=== PATIENT | male | born 1970 | race African-American/Black ===

== ENCOUNTER 2016-09-12 02:55 | Inpatient (IN) | payer BC, OTHER ==
[~2016-09-12] VITALS: Ht 185.4 cm; Wt 108.5 kg
[2016-09-12] VITALS (35 sets, daily range): BP systolic 83–194; BP diastolic 62–144
--- NOTE | ~2016-09-12 | H ---
[facility] [place] [address] HISTORY AND PHYSICAL Name: ALISA DE ANDA Room #: 452-P [facility] IN M.R.#: [id number] Admission: 09/12/16 Attend Phys: Carlos Julien DO Discharge: 09/15/16 Date of : 74 Report #: [id number] THIS REPORT FOR: //name// CC: Justo Ceja ATTENDING PHYSICIAN: Dr. Ortiz. PRIMARY CARE PHYSICIAN: Cori Ceja M.D. CHIEF COMPLAINT: Respiratory failure. HISTORY OF PRESENT ILLNESS: The patient is a 46-year-old -Citizen Of [place] male, who has a history of asthma. His says he is normally well controlled in the last few months, he has been having some congestion with productive cough and thick yellow to greenish sputum production. He has been evaluated few times in the ER and was never started on any antibiotics and has not been on any recent steroids. He does breathing treatments at home, which have helped somewhat. He has not been having any fevers as far as she knows. Apparently today, he was driving and had some respiratory distress. He actually called his and said he could not breath and pulled over at a gas station. She ended up finding him at the gas station and EMS had already arrived and were resuscitating him. Apparently, someone must have call the EMS and they had found him unresponsive and apneic. Apparently, his oxygen saturation was 7% and his heart rate upon their arrival was 30-40. The patient did have increased in oxygen and his heart rate after bagging. He has never lost a pulse and did not require any CPR. His says he has never been intubated for asthma complications in the past. In the ER, he was intubated and he remains sedated on the vent. He has already been seen by Cardiology. PAST MEDICAL HISTORY: Asthma. PAST SURGICAL HISTORY: None. HOME MEDICATIONS: Albuterol and Ellipta inhaler. ALLERGIES: None. SOCIAL HISTORY: The patient does smoke cigarettes. His has no idea, how many he smokes or how often he buys pack of cigarettes. She did find it in his belonging tonight in the ER. As far as she knows he has never been a heavy smoker and he has never smoked around her. He does drink alcohol socially and did have a few drinks tonight at a friend's libertarian. He works for [employer] He lives at home with his and his in-laws. [facility] [address] [place] [address] HISTORY AND PHYSICAL Name: ALISA DE ANDA Room #: 452-P [facility] IN .R.#: [id number] Admission: 09/12/16 Attend Phys: Carlos Julien DO Discharge: 09/15/16 Date of : 74 Report #: [id number] FAMILY HISTORY: Both his parents in their 20s, the thinks from homicide. REVIEW OF SYSTEMS: Unobtainable due to altered mental status and sedation. PHYSICAL EXAMINATION: GENERAL: The patient is an sedated male in no acute distress. VITAL SIGNS: Temperature is 35.7, heart rate 102, respirations 22, blood pressure 194/144 and oxygen is 95% on vent. HEENT: PERRLA. Sclerae with ET tube in place. NECK: Supple, no JVD noted. CARDIOVASCULAR: Normal S1, S2. No murmurs, rubs or gallops. RESPIRATORY: Breath sounds are with expiratory wheezing bilaterally. He is breathing comfortably with vent at this time. ABDOMEN: Soft and nondistended. VASCULAR: No edema noted. Pedal pulses are 2+. NEUROLOGIC: The patient is sedated. He is on vent. He is unable to follow any commands and he is breathing above the vent. LABORATORY DATA AND DIAGNOSTICS: WBC 14.3, hemoglobin 14.5, platelets are 250, alcohol level is 22, sodium 144, potassium 2.9, BUN 15, creatinine 1.2. Troponin is negative. Glucose is 219 and initial ABG showed a pH of 6.94, pCO2 of 89, pO2 of 462 and bicarbonate of 18.9, lactate now was 5.1. Urine drug screen was negative. Chest x-ray showed no acute process and ET tube was in good position. ASSESSMENT AND PLAN: 1. Eeotw-mp-cazivip respiratory failure due to asthma exacerbation. The patient has already been seen by Pulmonary and started on IV steroids and scheduled breathing treatments and antibiotics to cover for possible pneumonia and continue to wean vent per Pulmonary. 2. Hypokalemia. This is being replaced. Follow labs. 3. Hyperglycemia There is no history of diabetes. We will check hemoglobin A1c and add sliding scale insulin while he is on steroids. 4. Deep venous thrombosis prophylaxis, place sequential compression devices. We will continue to follow the patient closely throughout the hospitalization and make changes based on clinical status. <ELECTRONICALLY SIGNED> By: MARJORIE Gutierrez 09/16/16 0729 [id number] [id number] MARJORIE Gutierrez /nt
--- NOTE | ~2016-09-12 | HC ---
[facility] [address] CONSULTATION Name: ALISA DE ANDA Room #: 239-P ADM IN M.R.#: [id number] Admission: 09/12/16 Attend Phys: Syd Ortiz MD Discharge: Date of : 74 Report #: [id number] THIS REPORT FOR: //name// CC: Justo Ceja DATE OF SERVICE: 09/12/2016 REASON FOR CONSULTATION: Exacerbation of asthma. Forty minutes critical care time spent up to this point. IMPRESSION: 1. Exacerbation of asthma. 2. Hypokalemia. 3. Leukocytosis. 4. History of reflux. 5. Recent upper respiratory infection. PLAN: Antibiotics, corticosteroids, aerosol therapy, replace potassium, DVT and ulcer prophylaxis and weaning protocol. HISTORY OF PRESENT ILLNESS: A 46-year-old seen in the ER room 11, family present, has been having chest congestion this week. Discussed with spouse, he called her and told her to get the breathing treatments ready and EMS was called. Narcan was given. The patient required intubation and bagging, also received magnesium, ketamine and corticosteroids. No CPR was performed, but the patient was bagged. MEDICATIONS: Have included per chart, Anoro, Breo, AccuNeb, ____. ALLERGIES: No known. SOCIAL HISTORY: Positive tobacco. Occasional ETOH. 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 FAMILY HISTORY: Negative for asthma. REVIEW OF SYSTEMS: Possible GERD, asthma. No drugs of abuse, recent upper respiratory infection, no edema, no hypertension. No hot or cold intolerance. PHYSICAL EXAMINATION: VITAL SIGNS: Currently on ventilator, temperature 96.3, pulse 120, respirations 28, BP 121/68, earlier 194/144. LUNGS: Wheeze bilaterally. [facility] [address] [place] [address] CONSULTATION Name: ALISA DE ANDA Room #: 239-P [facility] IN M.R.#: [id number] Admission: 09/12/16 Attend Phys: Syd Ortiz MD Discharge: Date of : 74 Report #: [id number] HEART: Regular. ABDOMEN: Bowel sounds present. EXTREMITIES: Moving all extremities. LABORATORY DATA: Potassium is 2.9. BUN 15, creatinine 1.2, ____ 22, troponin less than 0.04. Drug screen negative. Initial pH 6.943, pCO2 89, pO2 462, lactate 5.1, 100%, rate of 20, tidal volume 500, PEEP of 5. White count 14.3, hemoglobin 14.5, platelets 250. Repeat ABG 7.235, pCO2 of 57, pO2 230 on ____, 28, 500 and 5. We will follow closely with you. By: [id number] [id number] Justo Del Angel MD /nt
[~2016-09-12 02:55] MED LIST: ACCUNEB SO1.25 MG/1 INH; ALBUTEROL2.5 MG/0.5 INH; ANORO ELLIPTA1 EACH IH; BREO ELLIPTA 21 EACH IH; PREDNISONE 20 M20 MG PO; VENTOLIN HFA 1818 GM INH
[2016-09-12 03:20] LABS: HEMATOCRIT 45.3 % (42.0-52.0); HEMOGLOBIN 14.5 gm/dL (14.0-18.0); MCH 28.8 pg (26.0-34.0); MCV 90.1 fL (80.0-100.0); PLATELET COUNT 250 thou/uL (150-400); RBC 5.02 mil/uL (4.50-6.00); RDW 14.4 % (10.5-14.5); WBC 14.3 thou/uL (4.0-11.0)
[2016-09-12 03:25] LABS: MANUAL DIFF YES
[2016-09-12 03:35] LABS: CREATININE 1.2 mg/dL (0.7-1.3)
[2016-09-12 03:36] LABS: POTASSIUM 2.9 mmol/L (3.5-5.1)
[2016-09-12 03:44] LABS: AMP/METHAMP Negative (Negative); BARBITURATES Negative (Negative); BENZODIAZEPINES Negative (Negative); COCAINE Negative (Negative); METHADONE Negative (Negative); OPIATES Negative (Negative); PCP Negative (Negative); THC Negative (Negative)
[2016-09-12 04:02] LABS: ABG COMMENT A/C MODE; ABG SAMPLE TYPE ARTERIAL; BE(vivo) -15.1 mmol/L (-2 to +3); HCO3 18.9 mmol/L (22.0-26.0); O2(CT) 20.7 mL/dL (15.0-23.0); O2Hb 94.9 % (92.0-98.0); PCO2 89.2 mmHg (35.0-45.0); PO2 462.2 mmHg (80.0-100.0); STICK SITE L.RADIAL; TIDAL VOLUME 500 ml; pH 6.943 (7.360-7.450); sO2 99.7 % (92.0-98.0); tCO2 21.6 mmol/L (24.0-30.0)
[2016-09-12 04:04] LABS: ABSOLUTE NEUTROPHILS 3.9 thou/uL (1.4-8.2); ANISOCYTOSIS SLIGHT; ATYPICAL LYMPHS 4 %; TOTAL CELL COUNT 100
[2016-09-12 05:24] LABS: ABG SAMPLE TYPE ARTERIAL; BE(vivo) -4.6 mmol/L (-2 to +3); HCO3 23.6 mmol/L (22.0-26.0); LACTATE 2.39 mmol/L (0.5-2.0); O2(CT) 18.9 mL/dL (15.0-23.0); PO2 230.1 mmHg (80.0-100.0); STICK SITE L.RADIAL; sO2 99.3 % (92.0-98.0); tCO2 25.4 mmol/L (24.0-30.0)
[2016-09-12 05:26] LABS: ABG COMMENT A/C MODE; TIDAL VOLUME 500 ml; pH 7.235 (7.360-7.450)
[2016-09-12 09:25] LABS: ABG SAMPLE TYPE ARTERIAL; BE(vivo) -2.8 mmol/L (-2 to +3); HCO3 23.2 mmol/L (22.0-26.0); LACTATE 3.08 mmol/L (0.5-2.0); O2(CT) 18.9 mL/dL (15.0-23.0); O2Hb 96.2 % (92.0-98.0); PCO2 45.2 mmHg (35.0-45.0); PO2 127.1 mmHg (80.0-100.0); sO2 98.3 % (92.0-98.0); tCO2 24.6 mmol/L (24.0-30.0)
[2016-09-12 09:26] LABS: STICK SITE L.RADIAL; pH 7.329 (7.360-7.450)
[2016-09-12 09:27] LABS: TIDAL VOLUME 500 ml; VDS CMV MODE cc
[2016-09-12 12:45] LABS: MAGNESIUM 2.1 mg/dL (1.8-2.4)
[2016-09-13] VITALS (21 sets, daily range): BP systolic 119–182; BP diastolic 66–113
[2016-09-13 04:40] LABS: HEMATOCRIT 40.4 % (42.0-52.0); HEMOGLOBIN 12.9 gm/dL (14.0-18.0); MCH 27.9 pg (26.0-34.0); MCV 87.2 fL (80.0-100.0); PLATELET COUNT 228 thou/uL (150-400); RBC 4.63 mil/uL (4.50-6.00); RDW 14.3 % (10.5-14.5); WBC 17.8 thou/uL (4.0-11.0)
[2016-09-13 04:52] LABS: MANUAL DIFF YES
[2016-09-13 05:13] LABS: ABG SAMPLE TYPE ARTERIAL; BE(vivo) -4.5 mmol/L (-2 to +3); HCO3 21.6 mmol/L (22.0-26.0); LACTATE 5.79 mmol/L (0.5-2.0); O2(CT) 19.3 mL/dL (15.0-23.0); PCO2 43.2 mmHg (35.0-45.0); PO2 82.9 mmHg (80.0-100.0); pH 7.316 (7.360-7.450); sO2 95.3 % (92.0-98.0); tCO2 22.9 mmol/L (24.0-30.0)
[2016-09-13 05:14] LABS: FIO2 30 %; TIDAL VOLUME 500 ml
[2016-09-13 05:59] LABS: ALBUMIN 3.4 g/dL (3.4-5.0); CALCIUM 8.5 mg/dL (8.5-10.1); CREATININE 1.1 mg/dL (0.7-1.3); POTASSIUM 4.3 mmol/L (3.5-5.1); TOTAL BILIRUBIN 0.2 mg/dL (<0.1-1.0)
[2016-09-13 08:26] LABS: ANISOCYTOSIS SLIGHT; TOTAL CELL COUNT 100
[2016-09-13 08:50] LABS: ABG SAMPLE TYPE ARTERIAL; HCO3 20.2 mmol/L (22.0-26.0); LACTATE 6.11 mmol/L (0.5-2.0); O2Hb 97.7 % (92.0-98.0); PCO2 31.3 mmHg (35.0-45.0); PO2 134.5 mmHg (80.0-100.0); Pressure Support 7 cm H20; STICK SITE L.RADIAL; pH 7.428 (7.360-7.450); sO2 98.8 % (92.0-98.0); tCO2 21.2 mmol/L (24.0-30.0)
[2016-09-14] VITALS (7 sets, daily range): BP systolic 142–170; BP diastolic 86–118
[2016-09-14 04:11] LABS: GLYCOHEMOGLOBIN (HGB A1C) 5.3 % (4.8-5.6)
[2016-09-15 04:04] VITALS: BP 155/103
[2016-09-15 08:04] VITALS: BP 157/102
[2016-09-15] MEDS ORDERED: CARVEDILOL3.125 MG PO (08:59)
[2016-09-15] MEDS ORDERED: AZITHROMYCIN 2250 MG PO (08:59)
[2016-09-15] MEDS ORDERED: ACCUNEB SO1.25 MG/1 INH (08:59)
[2016-09-15] MEDS ORDERED: ALTACE10 MG PO (09:00)
[2016-09-15] MEDS ORDERED: NORVASC10 MG PO (09:00)
[2016-09-15] MEDS ORDERED: MEDROL DOSPAK21 TA1 PO (09:00)
[2016-09-15 10:01] VITALS: BP 157/102
== END 2016-09-15 12:14 | disposition home or self-care (01) | DRG 208 ==
LOC: ER 02:55 → EROBS 04:59 → ICU 04:59 → 4W 04:59 → ICU 05:44 → 4W 09-13 18:28
PROVIDERS: Emergency Medicine; Family Medicine; Internal Medicine Geriatric Medicine; Internal Medicine Pulmonary Disease; Nurse Practitioner Acute Care
PROC: 5A1945Z Respiratory Ventilation, 24-96 Consecutive Hours (ICD-10-PCS; principal; 2016-09-12)
PROC: 0BH17EZ Insertion of Endotracheal Airway into Trachea, Via Natural or Artificial Opening (ICD-10-PCS; principal; 2016-09-12)
DX: J96.21 Acute and chronic respiratory failure with hypoxia (principal); J45.901 Unspecified asthma with (acute) exacerbation; J45.902 Unspecified asthma with status asthmaticus; J96.22 Acute and chronic respiratory failure with hypercapnia; I10 Essential (primary) hypertension; E87.6 Hypokalemia; F17.210 Nicotine dependence, cigarettes, uncomplicated; R73.9 Hyperglycemia, unspecified; D72.829 Elevated white blood cell count, unspecified; K21.9 Gastro-esophageal reflux disease without esophagitis; Z79.899 Other long term (current) drug therapy
CPT/HCPCS: 10047; 10078

== ENCOUNTER 2017-07-05 03:51 | Emergency (ER) | payer BC, OTHER ==
[~2017-07-05] VITALS: Ht 185.4 cm; Wt 113.4 kg
--- NOTE | ~2017-07-05 | EKG ---
[address] [place] [address] ELECTROCARDIOGRAM REPORT Name: ALISA DE ANDA Room #: DEP MATT Ramirez#: [id number] Admission: 07/05/17 Attend Phys: Discharge: 07/05/17 Date of : 74 Report #: [id number] THIS REPORT FOR: //name// [facility] ED Test Date: 2017-07-05 Test Time: 03:52:22 Pat Name: ALISA DE ANDA Department: Room: Gender: Piece Hand: FERCHO : 1970 Requested By: Lois Stoner Order Number: [id number] MD: Osman Vasquez Measurements Intervals [place] Rate: 108 P: 94 WA: 180 QRS: 73 QRSD: 84 T: 14 QT: 346 QTc: 464 Interpretive Statements Sinus tachycardia Otherwise no significant abnormality No previous ECG available for comparison Electronically Signed On 07-05-2017 9:54:02 CDT by Osman Vasquez [email or web address] <ELECTRONICALLY SIGNED> By: Osman Vasquez MD, [facility] 07/05/17 [id number] 0352 Osman Vasquez MD, FACC /EPI
[~2017-07-05 03:51] MED LIST changes: +ALTACE10 MG PO; +AZITHROMYCIN 2250 MG PO; +CARVEDILOL3.125 MG PO; +MEDROL DOSPAK21 TA1 PO; +NORVASC10 MG PO
[2017-07-05 04:06] LABS: HEMOGLOBIN 13.6 gm/dL (14.0-18.0); MCH 28.1 pg (26.0-34.0); MCHC 33.2 g/dL (28.0-37.0); MCV 84.9 fL (80.0-100.0); PLATELET COUNT 367 thou/uL (150-400); RBC 4.84 mil/uL (4.50-6.00); RDW 13.3 % (10.5-14.5); WBC 7.1 thou/uL (4.0-11.0)
[2017-07-05 04:11] LABS: CALCIUM 8.2 mg/dL (8.5-10.1); CREATININE 1.2 mg/dL (0.7-1.3); POTASSIUM 3.9 mmol/L (3.5-5.1)
[2017-07-05 04:30] LABS: BE(vivo) -0.5 mmol/L (-2 to +3); HCO3 24.8 mmol/L (22.0-26.0); PCO2 43.3 mmHg (35.0-45.0); PO2 58.1 mmHg (80.0-100.0); pH 7.376 (7.360-7.450); sO2 89.6 % (92.0-98.0)
[2017-07-05 05:24] LABS: ABSOLUTE NEUTROPHILS 1.5 thou/uL (1.4-8.2); ATYPICAL LYMPHS 10 %
[2017-07-05] MEDS ORDERED: VENTOLIN HFA 1818 GM INH ×2 (05:41→05:43)
[2017-07-05] MEDS ORDERED: ALBUTEROL2.5 MG/31 INH ×2 (05:41→05:43)
[2017-07-05] MEDS ORDERED: PREDNISONE50 MG PO ×2 (05:41→05:43)
== END 2017-07-05 06:09 | disposition home or self-care (01) ==
LOC: ER 03:51
PROVIDERS: Emergency Medicine
DX: J45.901 Unspecified asthma with (acute) exacerbation (principal); K21.9 Gastro-esophageal reflux disease without esophagitis

== ENCOUNTER 2020-02-01 12:55 | Inpatient (IN) | payer BC, OTHER ==
[~2020-02-01] VITALS: Ht 185.4 cm; Wt 99.8 kg
[2020-02-01] VITALS (15 sets, daily range): BP systolic 142–175; BP diastolic 70–118
--- NOTE | ~2020-02-01 | EMS ---
[address] [address] EMS Patient Care Report Name: ALISA DE ANDA Room #: REG MATT Ramirez#: [id number] Admission: 02/01/20 Attend Phys: Discharge: Date of : 74 Report #: [id number] THIS REPORT FOR: //name// Report Transmitted: 02/01/2020 12:40 EMS Care Summary [place], [place]/[facility] Incident [id number] @ 02/01/2020 12:27 Incident Location [address] [place] [address] Patient ALISA DE ANDA Male, 49 Years 1970 Patient Address Patient History Asthma, Patient Allergies No known allergies, Patient Medications Albuterol, Chief Complaint ASTHMA ATTACK Disposition Transported [place] Dispatch Reason Breathing Problem Transported To [facility] Narrative RESPONDED TO BREATHING PROBLEMS AT [employer]. PT FOUND SITTING IN CAR ALERT AND ORIENTED BUT VERY SWEATY AND ONLY ABLE TO SPEAK ONE WORD AT A TIME. PT HAD INHALER THAT APPEARED TO BE EMPTY. BREATHING TREATMENT SET UP AND ADMINSTERED AND PT PUT ON COT. VITALS, 3 LEAD AND IV OBTAINED. PT GIVEN 125 MG SOLUMEDROL. PT LUNG SOUNDS VERY DIMINISHED AND WHEEZY. PT TRANSPORTED EMERGENCY TO [facility]. PT OVERALL CONDITION DID NOT IMPROVE ALTHOUGH HE REPORTS SOME [address] [address] EMS Patient Care Report Name: ALISA DE ANDA Room #: REG MATT Ramirez#: [id number] Admission: 02/01/20 Attend Phys: Discharge: Date of : 74 Report #: [id number] RELIEF BY BREATHING TREATMENT. PT TEAM LIFTED TO BED AND HANDRAILS UP. REPORT GIVEN TO NURSE. Initial Vitals @12:44P: 99,SpO2: 83, @12:43P: 101,R: 30,BP: 188/124,CO: 0,SpO2: 97, @12:37P: 146,SpO2: 83, @12:44P: 100,SpO2: 83, @12:39P: 114,R: 30,BP: 245/146,Pain: 0/10,GCS: 15,CO: 0,SpO2: 88,Revised Trauma: 11, Assessments @12:33MENTAL:Time Oriented,Person Oriented,Event Oriented,Place Oriented,SKIN:Diaphoresis,HEENT:Head/Face: No Abnormalities,Neck/Airway: No Abnormalities,LUNG SOUNDS:General: No Abnormalities,ABDOMEN:General: No Abnormalities,PELVIS//GI:No Abnormalities,EXTREMITIES:Left Arm: Weakness,Left Leg: Weakness,Right Arm: Weakness,Right Leg: Weakness,PULSE:NEURO:No Abnormalities,@12:40MENTAL:Time Oriented,Person Oriented,Place Oriented,Event Oriented,SKIN:Diaphoresis,HEENT:Head/Face: No Abnormalities,Eyes: No Abnormalities,Neck/Airway: No Abnormalities,LUNG SOUNDS:General: No Abnormalities,Left Upper: No Abnormalities,Right Upper: No Abnormalities,Left Lower: No Abnormalities,Right Lower: No Abnormalities,ABDOMEN:General: No Abnormalities,Left Upper: No Abnormalities,Right Upper: No Abnormalities,Left Lower: No Abnormalities,Right Lower: No Abnormalities,PELVIS//GI:No Abnormalities,EXTREMITIES:Left Arm: Weakness,Right Arm: Weakness,Left Leg: Weakness,Right Leg: Weakness,PULSE:NEURO:No Abnormalities, Impression Asthma Procedures @12:33ALS AssessmentResponse: UnchangedSucceeded@12:38Solu-Medrol - 125 Milligrams (mg) - Intravenous (IV)Response: Improved@12:34Atrovent - 0.5 Milligrams (mg) - NebulizedResponse: Unchanged@12:34Albuterol - 2.5 Milligrams (mg) - NebulizedResponse: Unchanged@12:40Albuterol - 2.5 Milligrams (mg) - NebulizedResponse: Unchanged@12:37Saline Lock 3cc (18 ga) Site: Antecubital-LeftResponse: UnchangedSucceeded@12:353-Lead ECGResponse: UnchangedSucceeded Timeline 12:26,Call Received 12:26,Dispatch Notified 12:27,Dispatched 12:28,En Route 12:32,On Scene 12:33,At Patient [facility] [address] [place] [address] EMS Patient Care Report Name: ALISA DE ANDA Room #: REG MATT Ramirez#: [id number] Admission: 02/01/20 Attend Phys: Discharge: Date of : 74 Report #: [id number] 12:33,ALS Assessment,Response: UnchangedSucceeded, 12:34,Albuterol - 2.5 Milligrams (mg) - Nebulized,Response: Unchanged 12:34,Atrovent - 0.5 Milligrams (mg) - Nebulized,Response: Unchanged 12:35,3-Lead ECG,Response: UnchangedSucceeded, 12:37,BP: / M,PULSE: 146,RR: R,SPO2: 83 Ox,ETCO2: ,BG: ,PAIN: ,GCS: , 12:37,Saline Lock 3cc 18 ga Site: Antecubital-Left,Response: UnchangedSucceeded, 12:38,Solu-Medrol - 125 Milligrams (mg) - Intravenous (IV),Response: Improved 12:39,BP: 245/146 M,PULSE: 114,RR: 30 R,SPO2: 88 Ox,ETCO2: ,BG: ,PAIN: 0,GCS: 15, 12:40,Albuterol - 2.5 Milligrams (mg) - Nebulized,Response: Unchanged 12:40,Depart Scene 12:43,BP: 188/124 M,PULSE: 101,RR: 30 R,SPO2: 97 Ox,ETCO2: ,BG: ,PAIN: ,GCS: , 12:44,BP: / M,PULSE: 99,RR: R,SPO2: 83 Ox,ETCO2: ,BG: ,PAIN: ,GCS: , 12:44,BP: / M,PULSE: 100,RR: R,SPO2: 83 Ox,ETCO2: ,BG: ,PAIN: ,GCS: , 12:45,At Destination 13:02,Call Closed Disclaimer v1.1 Copyright 2020 [employer] This EMS Care Summary contains data elements from the applicable legal record (which may be displayed differently). It is designed to provide pertinent information for the following purposes: continuity of care, clinical quality, and state data reporting. The complete legal record is available to ED staff and administrators of the receiving hospital in [email or web address]'s Patient Tracker. All data is provided "as is."
--- NOTE | ~2020-02-01 | EMS ---
[address] [address] EMS Patient Care Report Name: ALISA DE ANDA Room #: REG MATT Ramirez#: [id number] Admission: 02/01/20 Attend Phys: Discharge: Date of : 74 Report #: [id number] THIS REPORT FOR: //name// Report Transmitted: 02/01/2020 12:41 EMS Care Summary [place], [place]/[facility] Incident [id number] @ 02/01/2020 12:27 Incident Location [address] [place] [address] Patient ALISA DE ANDA Male, 49 Years 1970 Patient Address Patient History Asthma, Patient Allergies No known allergies, Patient Medications Albuterol, Chief Complaint ASTHMA ATTACK Disposition Transported Lights/[place] Dispatch Reason Breathing Problem Transported To [facility] Narrative RESPONDED TO BREATHING PROBLEMS AT [employer]. PT FOUND SITTING IN CAR ALERT AND ORIENTED BUT VERY SWEATY AND ONLY ABLE TO SPEAK ONE WORD AT A TIME. PT HAD INHALER THAT APPEARED TO BE EMPTY. BREATHING TREATMENT SET UP AND ADMINSTERED AND PT PUT ON COT. VITALS, 3 LEAD AND IV OBTAINED. PT GIVEN 125 MG SOLUMEDROL. PT LUNG SOUNDS VERY DIMINISHED AND WHEEZY. PT TRANSPORTED EMERGENCY TO [facility]. PT OVERALL CONDITION DID NOT IMPROVE ALTHOUGH HE REPORTS SOME [address] [address] EMS Patient Care Report Name: ALISA DE ANDA Room #: REG MATT Ramirez#: [id number] Admission: 02/01/20 Attend Phys: Discharge: Date of : 74 Report #: [id number] RELIEF BY BREATHING TREATMENT. PT TEAM LIFTED TO BED AND HANDRAILS UP. REPORT GIVEN TO NURSE. Initial Vitals @12:44P: 99,SpO2: 83, @12:43P: 101,R: 30,BP: 188/124,CO: 0,SpO2: 97, @12:37P: 146,SpO2: 83, @12:44P: 100,SpO2: 83, @12:39P: 114,R: 30,BP: 245/146,Pain: 0/10,GCS: 15,CO: 0,SpO2: 88,Revised Trauma: 11, Assessments @12:33MENTAL:Time Oriented,Person Oriented,Event Oriented,Place Oriented,SKIN:Diaphoresis,HEENT:Head/Face: No Abnormalities,Neck/Airway: No Abnormalities,LUNG SOUNDS:General: No Abnormalities,ABDOMEN:General: No Abnormalities,PELVIS//GI:No Abnormalities,EXTREMITIES:Left Arm: Weakness,Left Leg: Weakness,Right Arm: Weakness,Right Leg: Weakness,PULSE:NEURO:No Abnormalities,@12:40MENTAL:Time Oriented,Person Oriented,Place Oriented,Event Oriented,SKIN:Diaphoresis,HEENT:Head/Face: No Abnormalities,Eyes: No Abnormalities,Neck/Airway: No Abnormalities,LUNG SOUNDS:General: No Abnormalities,Left Upper: No Abnormalities,Right Upper: No Abnormalities,Left Lower: No Abnormalities,Right Lower: No Abnormalities,ABDOMEN:General: No Abnormalities,Left Upper: No Abnormalities,Right Upper: No Abnormalities,Left Lower: No Abnormalities,Right Lower: No Abnormalities,PELVIS//GI:No Abnormalities,EXTREMITIES:Left Arm: Weakness,Right Arm: Weakness,Left Leg: Weakness,Right Leg: Weakness,PULSE:NEURO:No Abnormalities, Impression Asthma Procedures @12:33ALS AssessmentResponse: UnchangedSucceeded@12:38Solu-Medrol - 125 Milligrams (mg) - Intravenous (IV)Response: Improved@12:34Atrovent - 0.5 Milligrams (mg) - NebulizedResponse: Unchanged@12:34Albuterol - 2.5 Milligrams (mg) - NebulizedResponse: Unchanged@12:40Albuterol - 2.5 Milligrams (mg) - NebulizedResponse: Unchanged@12:37Saline Lock 3cc (18 ga) Site: Antecubital-LeftResponse: UnchangedSucceeded@12:353-Lead ECGResponse: UnchangedSucceeded Timeline 12:26,Call Received 12:26,Dispatch Notified 12:27,Dispatched 12:28,En Route 12:32,On Scene 12:33,At Patient [facility] [address] [place] [address] EMS Patient Care Report Name: ALISA DE ANDA Room #: REG MATT Ramirez#: [id number] Admission: 02/01/20 Attend Phys: Discharge: Date of : 74 Report #: [id number] 12:33,ALS Assessment,Response: UnchangedSucceeded, 12:34,Albuterol - 2.5 Milligrams (mg) - Nebulized,Response: Unchanged 12:34,Atrovent - 0.5 Milligrams (mg) - Nebulized,Response: Unchanged 12:35,3-Lead ECG,Response: UnchangedSucceeded, 12:37,BP: / M,PULSE: 146,RR: R,SPO2: 83 Ox,ETCO2: ,BG: ,PAIN: ,GCS: , 12:37,Saline Lock 3cc 18 ga Site: Antecubital-Left,Response: UnchangedSucceeded, 12:38,Solu-Medrol - 125 Milligrams (mg) - Intravenous (IV),Response: Improved 12:39,BP: 245/146 M,PULSE: 114,RR: 30 R,SPO2: 88 Ox,ETCO2: ,BG: ,PAIN: 0,GCS: 15, 12:40,Albuterol - 2.5 Milligrams (mg) - Nebulized,Response: Unchanged 12:40,Depart Scene 12:43,BP: 188/124 M,PULSE: 101,RR: 30 R,SPO2: 97 Ox,ETCO2: ,BG: ,PAIN: ,GCS: , 12:44,BP: / M,PULSE: 99,RR: R,SPO2: 83 Ox,ETCO2: ,BG: ,PAIN: ,GCS: , 12:44,BP: / M,PULSE: 100,RR: R,SPO2: 83 Ox,ETCO2: ,BG: ,PAIN: ,GCS: , 12:45,At Destination 13:02,Call Closed Disclaimer v1.1 Copyright 2020 [employer] This EMS Care Summary contains data elements from the applicable legal record (which may be displayed differently). It is designed to provide pertinent information for the following purposes: continuity of care, clinical quality, and state data reporting. The complete legal record is available to ED staff and administrators of the receiving hospital in [employer]'s Patient Tracker. All data is provided "as is."
[~2020-02-01 12:55] MED LIST changes: +ALBUTEROL2.5 MG/31 INH; +PREDNISONE50 MG PO
[2020-02-01 13:16] LABS: ABSOLUTE NEUTROPHILS 3.8 thou/uL (1.4-8.2); BASOPHILS 0.6 % (0.0-2.0); EOSINOPHILS 6.3 % (0.0-3.0); HEMATOCRIT 47.8 % (42.0-52.0); HEMOGLOBIN 15.6 gm/dL (14.0-18.0); LYMPHOCYTES 35.9 % (24.0-44.0); MCH 28.6 pg (26.0-34.0); MCHC 32.7 g/dL (28.0-37.0); MCV 87.5 fL (80.0-100.0); MONOCYTES 11.7 % (1.0-8.0); PLATELET COUNT 290 thou/uL (150-400); POLYS 45.5 % (36.0-66.0); RBC 5.46 mil/uL (4.50-6.00); RDW 13.7 % (10.5-14.5); WBC 8.4 thou/uL (4.0-11.0)
[2020-02-01 13:25] LABS: ANION GAP 8 mmol/L (7-16); BUN 19 mg/dL (7-18); CALCIUM 9.2 mg/dL (8.5-10.1); CHLORIDE 104 mmol/L (98-107); CO2 32 mmol/L (21-32); CREATININE 1.3 mg/dL (0.7-1.3); GLUCOSE 122 mg/dL (74-106); POTASSIUM 4.5 mmol/L (3.5-5.1); SODIUM 144 mmol/L (136-145)
[2020-02-01 13:33] LABS: BE(vivo) 0 mmol/L (-2 to +3); HCO3 29.4 mmol/L (22.0-26.0); PO2 108.7 mmHg (80.0-100.0); sO2 97.1 % (92.0-98.0)
[2020-02-01 13:34] LABS: PCO2 68.2 mmHg (35.0-45.0); pH 7.253 (7.360-7.450)
[2020-02-01 13:35] LABS: ALBUMIN 3.8 g/dL (3.4-5.0); DIRECT BILIRUBIN < 0.1 mg/dL (<0.1-0.2); SGOT 51 U/L (15-37); SGPT 49 U/L (30-65); TOTAL BILIRUBIN 0.3 mg/dL (0.2-1.0); TOTAL PROTEIN 8.5 g/dL (6.4-8.2); TROPONIN-I <0.06 ng/mL (<0.06)
--- NOTE | 2020-02-01 14:23 | EKG ---
[facility] [place] [address] [place] [address] ELECTROCARDIOGRAM REPORT Name: ALISA DE ANDA Room #: 170-11 ADM IN M.R.#: [id number] Admission: 02/01/20 Attend Phys: Cuate Day MD Discharge: Date of : 74 Report #: [id number] THIS REPORT FOR: cc: Cori Ceja MD, Nora P. MD Santiago, Patrick MD [facility] ~ THIS REPORT FOR: //name// [facility] ED Test Date: 2020-02-01 Test Time: 13:42:01 Pat Name: ALISA DE ANDA Department: Room: 170 Gender: M Gift Consultant: rolly : 1970 Requested By: Lois Stoner Order Number: [id number] MD: Mark Nelson Measurements Intervals [place] Rate: 94 P: 91 [place]: 182 QRS: 83 QRSD: 77 T: 68 QT: 350 QTc: 438 Interpretive Statements Sinus rhythm Biatrial enlargement Compared to ECG 07/05/2017 03:52:22 Sinus tachycardia no longer present Electronically Signed On 02-01-2020 14:23:30 CDT by Mark Nelson [email or web address] <ELECTRONICALLY SIGNED> By: Mark Nelson MD, FACC 02/01/20 1423 1342 1342 Mark Nelson MD, FAC /EPI
[2020-02-02] VITALS (13 sets, daily range): BP systolic 143–181; BP diastolic 62–118
[2020-02-02 04:47] LABS: CALCIUM 8.9 mg/dL (8.5-10.1); CREATININE 1.1 mg/dL (0.7-1.3); POTASSIUM 4.1 mmol/L (3.5-5.1)
[2020-02-02 05:07] LABS: HEMOGLOBIN 14.6 gm/dL (14.0-18.0); MCHC 32.3 g/dL (28.0-37.0); MCV 86.5 fL (80.0-100.0); RBC 5.21 mil/uL (4.50-6.00); RDW 13.7 % (10.5-14.5); WBC 11.3 thou/uL (4.0-11.0)
[2020-02-02] MEDS ORDERED: ACCUNEB SO1.25 MG/1 INH (10:38)
[2020-02-02] MEDS ORDERED: SYMBICORT160 MCG/4. INH (10:38)
[2020-02-02] MEDS ORDERED: PREDNISONE 20 M20 M1 PO (10:38)
--- NOTE | 2020-02-02 11:55 | NUR ---
Patient stable throughout the morning. Heart rate and rhythm stable. Blood pressure slightly elevated. Dr. Day ordering home meds. Ate well. Adequate oxygenation on room air. Up and down to commode without difficulty. Q4h RT tx. Patient did ask for an additional treatment before he transfered up to the 4th floor. Discussed plan of care with patient. Patient transfered to room 457 via wheelchair.
--- NOTE | 2020-02-02 14:41 | NUR ---
ORDERS RECEIVED AND APPRECIATED, MET WITH PATIENT IN ROOM. Pt TO DISCHARGE HOME THIS PM. Pt OBSERVED TO BE UP AD JASON, NO MOBILITY CONCERNS. PT WILL SIGN OFF, PLEASE RE-CONSULT IF CHANGE IN MOBILITY STATUS OCCURS.
--- NOTE | 2020-02-02 16:20 | NUR ---
PT RECEIVED IN TRANSFER FROM ICU ALERT AND IN NO ACUTE DISTRESS. AGREE W/ PREVIOUS ASSESSMENT. PT BREATHING EVEN AND UNLABORED. VSS. BP MED GIVEN. DR. DEL CASTILLO IN TO SEE PT AND AGREED FOR DISCHARGE TODAY. PT TO F/U W/ PRIMARY. MEDS RX SENT TO PHARMACY. DC'D W/ ALL BELONGINGS AT THIS TIME.
== END 2020-02-02 16:20 | disposition home or self-care (01) | DRG 189 ==
LOC: ER 12:55 → EROBS 14:13 → ICU 17:21 → 4W 02-02 10:54
PROVIDERS: Emergency Medicine; ADMIT Hospitalist; ATTEND Hospitalist
DX: J96.21 Acute and chronic respiratory failure with hypoxia (principal); J45.902 Unspecified asthma with status asthmaticus; J45.901 Unspecified asthma with (acute) exacerbation; J96.22 Acute and chronic respiratory failure with hypercapnia; K21.9 Gastro-esophageal reflux disease without esophagitis; F17.210 Nicotine dependence, cigarettes, uncomplicated; Z79.899 Other long term (current) drug therapy
CPT/HCPCS: 10045; 10078